=== PATIENT | female | born 2000 | race African-American/Black ===

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

== ENCOUNTER 2024-10-22 19:05 | Emergency (ER) | payer BC, SELFPAY ==
--- OUTSIDE RECORDS SUMMARY | 2024-10-22 19:06 | XMS_ITS | Clinical Summary ---
Author Organization [facility] Address [address] [place] [address] Care Team Providers Care Iron Launder Operator Name Role Phone Unavailable Primary Care Provider Unavailabl e Source Comments [facility],non-owned Affiliates and Associated Physician Practices is amultiple site organization consisting of ambulatory clinics and hospital sitesin [place], [place], [place] and [place]. This disclosure is being madepursuant to the Care Everywhere program and may not contain all information available regarding this patient. Last updated 17.[facility] Allergies No known active allergies Medications * Be aware that medications may not be up to date on this document. Alwaysverify current medications with the patient. traZODone (DESYREL) 150 MG tablet Take 150 mg by mouth once daily 1 Active hydrOXYzine hcl (ATARAX) 25 MG tablet Take 25 mg by mouth 1 Active norethin-eth estradiol-FE (LOESTRIN FE 04/16; JUNEL FE 04/16; MICROGESTIN FE 04/16) 1-20 MG-MCG tablet Take 1 (one) tablet by mouth once daily 3 packet 4 1 Active polyethylene glycol 3350 (MIRALAX) 17 GM/SCOOP powder 1 capful dissolved in 4-8 oz water or juice daily 527 g 11 1 Active Active Problems Problem Noted Date Diagnosed Date Anxiety 02/02/2021 Fatigue 02/02/2021 Vitamin D deficiency 02/02/2021 Breast pain 12/22/2020 Insomnia secondary to depression with anxiety Major depressive disorder, r ecurrent episode with anxious distress 07/07/2020 Overview (07/09/2020): admitted to [facility] for suicide attempt 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 07/05/2020 Resolved Problems Problem Noted Date Diagnosed Date Resolved Date Generalized abdominal pain 12/22/2020 1 04/04/2020 Acute sinusitis 05/26/2017 06/23/2017 Overview (05/26/2017): 05/26/17 Acute pharyngitis 01/31/2014 08/07/2014 Overview (01/31/2014): 01/31/14 Immunizations Immunization Administration Dates Next Due [employer] primary monoval ent 12+ yr 0.3mL Purple cap 08/23/2020,08/06/2020 DTaP VACCINE IM (6wk-6yrs) 06/04/2008,,03/14/2003,12/31,2002 HEP A PEDS 2 DOSE 09/16/2007,09/16/2004 HEP B VACCINE, PED/ADOL 2002 HIB Hep B 03/14/2003,2002 HIB-PRP-T 4 DOSE 04/08/2004,2002 Human Papilloma Virus Nineva lent Vaccine 01/27/2016 Human Papilloma Virus Corinna valent Vaccine 11/30/2013 INFLUENZA VACCINE, QUADR. (F LUZONE; FLULAVAL; FLUARIX; AFLURIA QUADRIVALENT; 6MO+), 0.5 ML (IIV4) 12/22/2020,01/28/2018 MENINGOCOCCAL ACWY (MCV4P) VAC IM 10/20/2018,07/2013 MENINGOCOCCAL B RECOMBINANT, 2 OR 3 DOSE, IM 11/27/2019,10/20/2018 MMR 01/19/2008,10/01/2005 PNEUMOCOCCAL PCV7 CONJ, PEDS 11/17/2007, 03/14/2003,2002,11/05 POLIO IPV 01/12/2008, 4,2002,11/05 TDAP (7yrs+) 10/19/2012 VARICELLA 01/19/2008,10/02/2003 Family History Medical History Relation Name Comments Cancer - Lung Father Arthritis - Rheumatoid Maternal Grandmother Diabetes Maternal Grandmother Stroke Maternal Grandmother CAD (Coronary Artery Disease) Paternal Grandfather Diabetes Paternal Grandfather Relation Name Status Comments Father Maternal Grandmother Paternal Grandfather Social History Tobacco Use Types Packs/Day Years Used Date Smoking Tobacco: Never Smokeless Tobacco: Never Tobacco Cessation:Counseling Given: No Alcohol Use Standard Drinks/Week Comments No 0 (1 standard drink = 0.6 oz pur e alcohol) PHQ-2 Answer Date Recorded PHQ2 TOTAL SCORE 5 12/22/2020 Comments Unknown Sex and Gender Information Value Date Recorded Sex Assigned at Female 02/26/2021 4:39 PM RETORT FURNACE HELPER Legal Sex Female 5:42 AM RETORT FURNACE HELPER Gender Identity Female 02/26/2021 4:39 PM RETORT FURNACE HELPER Sexual Orientation Bisexual 02/26/2021 4: 39 PM RETORT FURNACE HELPER Last Filed Vital Signs Vital Sign Reading Time Taken Comments Blood Pressure 110/50 03/05/2021 3:03 PM RETORT FURNACE HELPER Pulse 109 03/05/2021 3:03 PM RETORT FURNACE HELPER Temperature 37 C (98.6 F) 03/05/2021 3:03 PM RETORT FURNACE HELPER Respiratory Rate 16 01/30/2020 4:27 PM RETORT FURNACE HELPER Oxygen Saturation 99% 03/05/2021 3:03 PM RETORT FURNACE HELPER Inhaled Oxygen Concentration - - Weight 76.3 kg (168 lb 3.2 oz) 03/05/2021 3:03 P M RETORT FURNACE HELPER Height 162.6 cm (5' 4) 03/05/2021 3:03 PM RETORT FURNACE HELPER Body Mass Index 28.87 03/05/2021 3:03 PM RETORT FURNACE HELPER Plan of Treatment Health Maintenance Due Date Last Done Comments HIV SCREENING 2017 CHLAMYDIA/GONORRHEA SCREENING 2018 HEPATITIS C SCREENING 08/17/2020 DTAP/TDAP/TD VACCINES (7 - Td or Tdap) 10/19/2022 10/19/2012, 06/04/2008, 04/08/2004, Additional history exists PAP SMEAR 08/23/2023 COVID-19 VACCINE ( season) 2023 08/23/2020, 08/06/2020 DEPRESSION SCREENING 03/28/2024 INFLUENZA VACCINE (#1) 2024 12/22/2020, 2017 ZOSTER VACCINE (1 of 2) 2052 HEPATITIS B VACCINE Completed 03/14/2003, 2002, 2002 HIB VACCINE Completed 04/08/2004, 02/25, 2002, Additional history exists PNEUMOCOCCAL VACCINE Aged Out 11/17/2007, 03/14/2003, 2002, Additional history exists No longer eligible based on patient's age to complete this topic HPV VACCINE Completed 01/27/2016, 11/30/2013 MENINGOCOCCAL GROUPS A/C/Y/W VACCINE Completed 10/20/2018, 11/30/2013 MENINGOCOCCAL (Group B) VACCINE SHARED DECISION-MAKING Completed 11/27/2019, 10/20/2018 Goals Goal Patient Goal Type Associated Problems Recent Progress Patient-Stated? Author Use safety retraint in car Lifestyle On track( 020 10:55 AM CDT) Margoth Drake MA Insurance [facility] [id number] [id number]
--- OUTSIDE RECORDS SUMMARY | 2024-10-22 19:06 | XMS_ITS | Referral Summary ---
Author Organization [facility] Address [address] [place] [id number] Care Team Providers Care Molding Sander Name Role Phone Unknown, Notinfile Primary Care Provider Unavail able Allergies No known active allergies Medications buPROPion XL (WELLBUTRIN XL) 300 mg 24 hr tablet Take 1 tablet (300 mg total) by mouth daily 30 tablet 3 02/12/2021 Active traZODone (DESYREL) 150 mg tablet Take 1 tablet (150 mg total) by mouth nightly 30 tablet 6 02/12/2021 Active hydrOXYzine (ATARAX) 25 mg tablet Take 1 tablet (25 mg total) by mouth 3 (three) times a day as needed for anxiety 60 tablet 3 02/12/2021 Active lurasidone (LATUDA) 20 mg tablet Take 1 tablet (20 mg total) by mouth daily with dinner 30 tablet 3 02/27/2021 Active Active Problems No known active problems Immunizations Immunization Administration Dates Next Due Tdap 06/15/2024 Social History Tobacco Use Types Packs/Day Years Used Date Smoking Tobacco: Never Assessed Personal Safety Answer Date Recorded Have you ever been in or are you currently in a harmful physical or emotional relationship or is someone making you feel afraid or unsafe? Denies 06/15/2024 Comments No Sex and Gender Information Value Date Recorded Sex Assigned at Not on file Legal Sex Female 10:21 AM CDT Gender Identity Female 07/29/2020 7:49 PM CDT Sexual Orientation Bisexual 07/29/2020 7: 49 PM CDT Last Filed Vital Signs Vital Sign Reading Time Taken Comments Blood Pressure 148/76 06/15/2024 6:56 PM CDT Pulse 80 06/15/2024 6:56 PM CDT Temperature 37 C (98.6 F) 06/15/2024 6:56 PM CDT Respiratory Rate 18 06/15/2024 6:56 PM CDT Oxygen Saturation 100% 06/15/2024 6:56 PM CDT Inhaled Oxygen Concentration - - Weight 77.1 kg (170 lb) 06/15/2024 6:56 PM CDT Height 162.6 cm (5' 4) 06/15/2024 6:56 PM CDT Body Mass Index 29.18 06/15/2024 6:56 PM CDT Plan of Treatment Not on file Insurance [employer] Address: [address] [place] [address] Josey [employer] Care Teams Molding Sander Relationship Specialty Start Date End Date Unknown, Notinfile PCP - General 07/10/20
--- OUTSIDE RECORDS SUMMARY | 2024-10-22 19:06 | XMS_ITS | Clinical Summary ---
Author Organization [facility] Address [address] [place] [id number] Care Team Providers Care Furrier Shop Supervisor Name Role Phone Unknown, Notinfile Primary Care [...] Orientation Bisexual 07/29/2020 7: 49 PM CDT Obstetrics History Para Term AB IAB SAB Ectopic Multiple Livin g Live Births 0 0 0 0 0 0 0 0 0 0 0 Last Filed Vital Signs Vital Sign Reading [...] 06/15/2024 6:56 PM CDT Plan of Treatment Health Maintenance Due Date Last Done Comments Cervical Cancer Screening 2002 Depression Screening 2002 Hepatitis C Screening 2002 Regular Well Visit/Exam 18-64 2020 Covid-19 Vaccine ( season) 2023 08/23/2020, 08/06/2020 Influenza Vaccine (#1) 2024 12/22/2020, 2017 DTaP/Tdap/Td Vaccine (8 - Td or Tdap) 06/15/2034 06/15/2024, 10/19/2012, 06/04/2008, Additional history exists Hepatitis B Screening Completed 03/14/2003 , 2002, 2002 Pneumococcal vaccine <65 Aged Out 008, 03/14/2003, 2002, Additional history exists No longer eligible based on patient's age to complete this topic Varicella Vaccines Completed 01/19/2008, 10/02/2003 HPV Vaccines Completed 01/27/2016, 11/30/2013 Meningococcal B Vaccine Completed 11/27/2019, 10/20 Insurance [facility] [employer] Address: [address] [place] [address] [employer] Care Teams Furrier Shop Supervisor Relationship Specialty Start Date End Date Unknown, Notinfile PCP - General 07/10/20
[2024-10-22 19:10] VITALS: BP 136/75; PULSE 70; RESP 20; TEMP 36.9; O2SAT 100
--- NOTE | 2024-10-22 19:12 | ED_ITS ---
HPI - Wound/Laceration General Chief Complaint: Wound/Laceration Stated Complaint: left arm lac History of Present Illness HPI narrative: patient is a 24-year-old female, past medical history significant for depression/anxiety, presents to [facility] with a laceration of the left fore arm, sustained when she was attempting to cut a zip tie from a a litter box using a knife. The knife slipped, causing injury. She denies foreign body risk. She is not . last tetanus vaccination was 2 months ago /up-to-date. Patient is right-hand dominant. Related Data Home Medications ?Medication ?Instructions ?Recorded ?Confirmed ?Last Taken ?Type escitalopram oxalate 20 mg tablet 20 mg PO DAILY 01/13/21 01/13/21 Unknown History (Lexapro) trazodone 150 mg tablet 150 mg PO HS 01/13/21 01/13/21 Unknown History Allergies Allergy/AdvReac Type Severity Reaction Status Date / Time No Known Allergies Allergy Verified 01/13/21 09:43 Review of Systems Integumentary/Breasts: Comments: refer to [facility] Past Medical History Medical History Healthy female Surgical History Surgical History No history of previous surgery Social History Social History Smoking status: Never smoker Exam Const: General: cooperative, healthy appearing, comfortable and no acute distress Nutritional Appearance: average body habitus and well nourished Orientation/consciousness: oriented to person HENMT: Head: normal to inspection Ears: hearing grossly normal bilaterally Face/Nose/Sinus: Abnormal external nose present Face and sinus: normal facial exam Throat: posterior oropharynx normal Eyes: General: appearance normal, both eyes and all related structures Visual Martinez: normal visual martinez by confrontation Eyelids: eyelids normal Conjunctivae: conjunctivae normal Sclera: sclerae normal EOM: EOMs intact bilaterally Neck: Neck: normal visual inspection, full ROM, no lymphadenopathy and no meningeal signs Resp: Effort & Inspection: normal respiratory effort and able to speak in complete sentences Auscultation: clear to auscultation bilaterally Cardio: Palpation: normal PMI Rate: regular rate Skin: Other: 2.5 cm linear laceration noted to the left volar aspect of the forearm, radial side, no active bleeding, no foreign body noted Neuro: General: oriented to person, oriented to place, oriented to time, patient oriented x3, gait normal, tone normal, moves all extremities, Normal light touch and pain sensation, no meningeal signs, no focal motor deficits and CN's II-XI intact bilaterally Course Course Emergency Course: laceration with low foreign body risk, low risk for contamination as well. Wound is irrigated copiously, laceration repair is completed using 5.0 nylon, 5. Sutures placed. Home wound care instructions are provided. Follow-up in 7-10 days for suture removal with PCP, sooner for a wound check if healing concerns arise. Patient is agreeable with plan Level of Care: Express Care Visit (48801) Vital Signs Vital signs: Vital Signs Temperature 36.9 C 10/22/24 19:10 Pulse Rate 70 10/22/24 19:10 Respiratory Rate 20 10/22/24 19:10 Blood Pressure 136/75 10/22/24 19:10 Pulse Oximetry 100 10/22/24 19:10 Oxygen Delivery Room Air 10/22/24 19:10 Temperature 36.9 C 10/22/24 19:10 Pulse Rate 70 10/22/24 19:10 Respiratory Rate 20 10/22/24 19:10 Blood Pressure 136/75 10/22/24 19:10 Pulse Oximetry 100 10/22/24 19:10 Oxygen Delivery Room Air 10/22/24 19:10 Procedures Laceration Laceration 1: Date: 10/22/24 Time: 19:35 Site: upper extremity ( left forearm laceration) Side (If applicable): left Size (cm): 2.5 Description: linear Depth: simple, single layer Local Anesthetic: lidocaine 1% Amount of anesthesia used (mL): 4 Pre-repair: wound explored and irrigated extensively ====== Skin Level ====== Skin layer closed with: nylon Size (cm): 5-0 Number of sutures: 5 Technique: simple, interrupted ====== Subcutaneous Layer ====== ====== Muscle Layer ====== ====== Tendon Layer ====== Dressing: triple antibiotic and Band-Aid is applied following wound repair MDM - Wound/Laceration MDM Narrative Medical decision making narrative: laceration repair Differential Diagnosis Differential diagnosis: Likely laceration Discharge Plan Discharge Clinical Impression: Laceration Patient Disposition: Home Condition: Stable Instructions: Antibiotic Form, Laceration (ED) Additional Instructions: KEEP WOUND CLEAN AND DRY. YOU MAY WASH ONCE DAILY WITH A MILD SOAP SUCH BABY WASH AND PAT DRY WITH CLEAN TOWEL. APPLY A THIN LAYER VASELINE OR NEOSPORIN / BACITRACIN TO THE WOUND LEAST ONCE DAILY. COVER THE WOUND WOUND CONTAMINATION RISK IS HIGH, ALLOW THE WOUND TO GET AIR WHEN CONTAMINATION RISK IS LOW. FOLLOW-UP WITH YOUR PRIMARY CARE PROVIDER IN 7-10 DAYS FOR SUTURE REMOVAL, SOONER IF HEALING CONCERNS ARISE. Patient Language: Persian Prescriptions: No Action trazodone 150 mg Tablet 150 mg PO HS escitalopram oxalate [Lexapro] 20 mg Tablet 20 mg PO DAILY Follow-up/Referrals: PHYSICIAN,QUARTZ CUTTER [Primary Care Provider] - Time of Disposition: 19:38
== END 2024-10-22 19:43 | disposition home or self-care (01) ==
PROVIDERS: Emergency Provider Nurse Practitioner Family
DX: S51.812A Laceration without foreign body of left forearm, initial encounter (principal); W26.0XXA Contact with knife, initial encounter
CPT/HCPCS: 12001; 99212; G0463